=== PATIENT | female | born 1990 | race Caucasian/White ===

== ENCOUNTER 2022-03-23 17:16 | Emergency (ER) | payer OTHER ==
--- NOTE | 2022-03-23 17:33 | NUR ---
called in ed waiting room no response.
--- NOTE | 2022-03-23 17:40 | NUR ---
called in ed waiting room. no response. left without getting triaged
== END 2022-03-23 17:41 | disposition left against medical advice (07) ==
LOC: ER 17:16
DX: Z53.21 Procedure and treatment not carried out due to patient leaving prior to being seen by health care provider (principal)